=== PATIENT | female | born 1955 | race Caucasian/White ===

== ENCOUNTER → 2021-12-10 | Outpatient (CLI) | payer MEDICARE, OTHER | END | disposition home or self-care (01) | LOC: RESCLI 09:13 | PROVIDERS: ATTEND Radiology Diagnostic Radiology | DX: I10 Essential (primary) hypertension (principal); M12.9 Arthropathy, unspecified; E03.9 Hypothyroidism, unspecified; G43.909 Migraine, unspecified, not intractable, without status migrainosus; K21.9 Gastro-esophageal reflux disease without esophagitis; Z79.899 Other long term (current) drug therapy ==